=== PATIENT | male | born 1940 ===

== ENCOUNTER 2024-02-22 19:40 | Outpatient (REF) | payer MEDICARE, SELFPAY ==
[2024-02-22 11:12] LABS: Bilirubin Negative (Negative); Blood Moderate (Negative); Clarity Sl Cloudy (Clear); Glucose Negative (Negative); Ketones Negative (Negative); Leukocyte Esterase Large (Negative); Nitrite Negative (Negative); Specific Gravity 1.015 (1.005-1.025); Urobilinogen 0.2 mg/dL (Up to 0.2)
[2024-02-22 11:17] LABS: Bacteria Few HPF (Negative); C & S Indicated? C&S Done As Ordered; Casts Negative LPF (Negative); Crystals Negative HPF (Negative); Epithelial Cells Rare HPF (Negative); Mucus Negative (Negative); WBC 20-50 HPF (0-5)
== END 2024-02-22 19:41 | disposition home or self-care (01) ==
LOC: LBN 19:40
PROVIDERS: Visit Provider Family Medicine
DX: N39.0 Urinary tract infection, site not specified (principal)
CPT/HCPCS: 87077; 81003; 81015; 87086; 87186

== ENCOUNTER 2024-04-17 18:48 | Outpatient (REF) | payer MEDICARE, SELFPAY ==
[2024-04-17 17:24] LABS: HGB 16.4 g/dL (13.5-17.5); MCH 26.7 pg (27.0-33.0); MCHC 32.2 % (32.0-36.0); MCV 83 fL (80-95); MPV 11.2 fL (8.0-11.0); Platelet Count 537 10^3/uL (130-400); RBC 6.14 10^6/uL (4.36-5.78); RDW-SD 43.9 fL
[2024-04-17 17:27] LABS: Anion Gap 15.9 mmol/L (3-11); BUN 53 mg/dL (7-18); CO2 22.1 mmol/L (21.0-32.0); CREATININE 3.1 mg/dL (0.70-1.30); Calcium 10.5 mg/dL (8.5-10.1); Chloride 106 mmol/L (98-107); Estimated GFR 19.09 (mL/min/1.73m2); Glucose 274 mg/dL (74-106); Potassium 5.5 mmol/L (3.5-5.1); Sodium 144 mmol/L (136-145)
[2024-04-17 17:31] LABS: WBC 25.39 10^3/uL (4.4-10.8)
== END 2024-04-17 18:49 | disposition home or self-care (01) ==
LOC: LBN 18:48
PROVIDERS: Visit Provider Nurse Practitioner Adult Health
DX: R40.0 Somnolence (principal)
CPT/HCPCS: 80048; 85027